=== PATIENT | female | born 1950 | race Caucasian/White ===

== ENCOUNTER 2019-01-15 11:29 | Outpatient (CLI) | payer MEDICARE ==
[2019-01-15] VITALS (21 sets, daily range): BP systolic 80–149; BP diastolic 51–79
[~2019-01-15 11:29] MED LIST: AMIT10TA6 PO; ATOR10TA70 PO; CHLO25TA2 PO; CYAN500T63 PO; DICLOFENAC PO; DICY10CA14 PO; GABA-530 PO; LISI10TA4 PO; ZOLP5TAB2 PO
== END 2019-01-15 23:59 | disposition home or self-care (01) ==
LOC: CARD DIAG 11:29
PROVIDERS: ATTEND Internal Medicine Cardiovascular Disease
DX: R42 Dizziness and giddiness (principal)
CPT/HCPCS: 93660

== ENCOUNTER 2019-01-26 11:16 | Emergency (ER) | payer MEDICARE ==
[~2019-01-26] VITALS: Ht 167.6 cm; Wt 102.0 kg
[2019-01-26] MEDS ORDERED: GUAI237S46 PO (11:55)
[2019-01-26 12:17] VITALS: BP 105/68
== END 2019-01-26 12:15 | disposition home or self-care (01) ==
LOC: ER 11:17
DX: J20.9 Acute bronchitis, unspecified (principal); Z60.2 Problems related to living alone; Z88.8 Allergy status to other drugs, medicaments and biological substances; Z79.899 Other long term (current) drug therapy
CPT/HCPCS: 99282

== ENCOUNTER 2019-02-18 11:50 | Emergency (ER) | payer MEDICARE ==
[~2019-02-18] VITALS: Ht 167.6 cm; Wt 110.0 kg
[2019-02-18] MEDS ORDERED: ipratropium/albuterol 3ml nebule NEB ONE (13:00)
[2019-02-18] MEDS ORDERED: GUAI120015 PO (13:24)
[2019-02-18] MEDS ORDERED: ALBU6.7H9 INH (13:24)
[2019-02-18] MEDS ORDERED: AMOX-422 PO (13:24)
[2019-02-18] MEDS ORDERED: PRED20TA PO (13:24)
--- NOTE | 2019-02-18 13:55 | NUR ---
RT AT BEDSIDE AT THIS TIME.
[2019-02-18 14:03] VITALS: BP 139/65
== END 2019-02-18 14:04 | disposition home or self-care (01) ==
LOC: ER 11:51
DX: J18.9 Pneumonia, unspecified organism (principal); J45.909 Unspecified asthma, uncomplicated; Z87.891 Personal history of nicotine dependence; Z88.8 Allergy status to other drugs, medicaments and biological substances; Z79.899 Other long term (current) drug therapy
CPT/HCPCS: 71046; 94640; 94760; 99283

== ENCOUNTER 2023-12-13 10:09 | Emergency (ER) | payer MEDICARE ==
[~2023-12-13] VITALS: Ht 162.6 cm; Wt 89.8 kg
[~2023-12-13 10:09] MED LIST changes: +ALBU6.7H14 INH; -CYAN500T63 PO; +CYAN500T71 PO; +DICY-19 PO; -DICY10CA14 PO; +GUAI120015 PO; +LISI10TA27 PO; -LISI10TA4 PO
[2023-12-13 10:20] VITALS: TEMP 97.6
[2023-12-13 10:50] LABS: BASOPHILS # (AUTO) 0.1 X10'3 (0-0.2); BASOPHILS % (AUTO) 0.9 % (0-1); EOSINOPHILS # (AUTO) 0.3 X10'3 (0-0.9); EOSINOPHILS % (AUTO) 3.7 % (0-6); HEMATOCRIT 35.9 % (35.0-45.0); HEMOGLOBIN 11.9 g/dl (12.0-16.0); LYMPHOCYTES # (AUTO) 2.7 X10'3 (1.1-4.8); LYMPHOCYTES % (AUTO) 38.7 % (21-51); MEAN CORPUSCULAR HEMOGLOBIN 30.9 PG (27.0-31.0); MEAN CORPUSCULAR HGB CONC 33.1 g/dL (33.0-36.5); MEAN CORPUSCULAR VOLUME 93.2 FL (78-98); MEAN PLATELET VOLUME 7.2 FL (7.4-10.4); MONOCYTES # (AUTO) 0.5 X10'3 (0-0.9); MONOCYTES % (AUTO) 6.6 % (2-12); NEUTROPHILS # (AUTO) 3.5 X10'3 (1.8-7.7); NEUTROPHILS % (AUTO) 50.1 % (42-75); PLATELET COUNT 247 X10'3 (140-440); RED BLOOD COUNT 3.85 X10'6 (4.20-5.60); RED CELL DISTRIBUTION WIDTH 13.7 % (11.5-14.5); WHITE BLOOD COUNT 6.9 X10'3 (4.5-11.0)
[2023-12-13 10:56] LABS: ALANINE AMINOTRANSFERASE 12 U/L (12-78); ALBUMIN 3.7 G/DL (3.4-5.0); ALKALINE PHOSPHATASE 88 IU/L (46-116); ANION GAP 4 (8-16); ASPARTATE AMINO TRANSFERASE 17 U/L (10-37); BILIRUBIN,TOTAL 0.4 MG/DL (0.1-1.0); BLOOD UREA NITROGEN 15 MG/DL (7-18); BUN/CREATININE RATIO 12.7 (10.0-20.0); CALCIUM 9.2 MG/DL (8.5-10.1); CHLORIDE 104 MMOL/L (99-107); CREATININE 1.18 MG/DL (0.40-0.90); GLUCOSE 96 MG/DL (70-104); POTASSIUM 4.4 MMOL/L (3.5-5.1); SODIUM 138 MMOL/L (135-145); TOTAL CARBON DIOXIDE 29.7 MMOL/L (24-32); TOTAL PROTEIN 7.4 G/DL (6.4-8.2); eCRCL 37 ML/MIN; eGFR 45 ML/MIN
[2023-12-13 11:04] LABS: PRO BRAIN NATRIURETIC PEPTIDE 189 PG/ML (0-125)
[2023-12-13 11:30] VITALS: BP 128/66; PULSE 71; RESP 16; O2SAT 99
== END 2023-12-13 11:39 | disposition home or self-care (01) ==
LOC: ER 10:10
DX: I49.3 Ventricular premature depolarization (principal); R42 Dizziness and giddiness; Z88.8 Allergy status to other drugs, medicaments and biological substances; Z79.899 Other long term (current) drug therapy
CPT/HCPCS: 36415; 71045; 80053; 83880; 84484; 85025; 93005; 99285

== ENCOUNTER 2024-04-24 23:25 | Emergency (ER) | payer MEDICARE ==
[~2024-04-24] VITALS: Ht 162.6 cm; Wt 77.5 kg
[2024-04-24 23:26] VITALS: TEMP 98.2
[2024-04-24 23:52] LABS: BASOPHILS # (AUTO) 0.1 X10'3 (0-0.2); EOSINOPHILS # (AUTO) 0.3 X10'3 (0-0.9); EOSINOPHILS % (AUTO) 3.6 % (0-6); HEMATOCRIT 34.8 % (35.0-45.0); HEMOGLOBIN 11.9 g/dl (12.0-16.0); LYMPHOCYTES # (AUTO) 3.2 X10'3 (1.1-4.8); LYMPHOCYTES % (AUTO) 43.5 % (21-51); MEAN CORPUSCULAR HEMOGLOBIN 32.5 PG (27.0-31.0); MEAN CORPUSCULAR HGB CONC 34.1 g/dL (33.0-36.5); MEAN CORPUSCULAR VOLUME 95.3 FL (78-98); MEAN PLATELET VOLUME 7.2 FL (7.4-10.4); MONOCYTES # (AUTO) 0.5 X10'3 (0-0.9); MONOCYTES % (AUTO) 6.8 % (2-12); NEUTROPHILS # (AUTO) 3.3 X10'3 (1.8-7.7); NEUTROPHILS % (AUTO) 45.1 % (42-75); PLATELET COUNT 268 X10'3 (140-440); RED BLOOD COUNT 3.65 X10'6 (4.20-5.60); RED CELL DISTRIBUTION WIDTH 14.9 % (11.5-14.5); WHITE BLOOD COUNT 7.3 X10'3 (4.5-11.0)
[2024-04-25 00:04] LABS: ALANINE AMINOTRANSFERASE 18 U/L (12-78); ALBUMIN 3.9 G/DL (3.4-5.0); ALBUMIN/GLOBULIN RATIO 1.1 (1.1-1.5); ALKALINE PHOSPHATASE 88 IU/L (46-116); ANION GAP 6 (8-16); ASPARTATE AMINO TRANSFERASE 13 U/L (10-37); BILIRUBIN,TOTAL 0.5 MG/DL (0.1-1.0); BLOOD UREA NITROGEN 17 MG/DL (7-18); BUN/CREATININE RATIO 22.7 (10.0-20.0); CALCIUM 9.4 MG/DL (8.5-10.1); CHLORIDE 106 MMOL/L (99-107); CREATININE 0.75 MG/DL (0.40-0.90); GLUCOSE 92 MG/DL (70-104); MAGNESIUM 1.9 MG/DL (1.5-2.4); SODIUM 141 MMOL/L (135-145); TOTAL CARBON DIOXIDE 29.5 MMOL/L (24-32); TOTAL PROTEIN 7.5 G/DL (6.4-8.2); eCRCL 57 ML/MIN; eGFR 76 ML/MIN
[2024-04-25] MEDS ORDERED: CIPR-202 PO (02:09)
[2024-04-25] MEDS ORDERED: CEPH-585 PO (02:09)
[2024-04-25 02:19] VITALS: BP 149/98; PULSE 62; RESP 15; O2SAT 99
== END 2024-04-25 02:21 | disposition home or self-care (01) ==
LOC: ER 23:25
DX: L03.031 Cellulitis of right toe (principal); Z88.8 Allergy status to other drugs, medicaments and biological substances
CPT/HCPCS: 36415; 73630; 80053; 83605; 83735; 84145; 85025; 87040; 99284